=== PATIENT | female | born 1985 | race Caucasian/White ===

== ENCOUNTER 2020-04-22 08:39 | Inpatient (IN) ==
[2020-04-22] MEDS ORDERED: BUTORPHANOL TARTRATE 2 MG/ML VIAL IV PRN ×2 (12:39)
[2020-04-22] MEDS ORDERED: RINGER'S SOLUTION,LACTATED 1,000 ML IV ONE (12:39)
[2020-04-22] MEDS ORDERED: ONDANSETRON 4 MG TAB.RAPDIS PO PRN (12:39)
[2020-04-22] MEDS ORDERED: OXYTOCIN/0.9 % SODIUM CHLORIDE 30 UNITS/500 ML BAG IV ONE ×2 (12:39→12:55)
[2020-04-22] MEDS ORDERED: LIDOCAINE HCL 50 ML VIAL PERI PRN (12:39)
[2020-04-22] MEDS ORDERED: RINGER'S SOLUTION,LACTATED 1,000 ML IV PRN (12:39)
[2020-04-22] MEDS ORDERED: SENNOSIDES 8.6 MG TABLET PO PRN (12:55)
[2020-04-22] MEDS ORDERED: HYDROCORTISONE 30 APPL TUBE TP PRN (12:55)
[2020-04-22] MEDS ORDERED: BISACODYL 10 MG SUPP.RECT RC PRN (12:55)
[2020-04-22] MEDS ORDERED: BENZOCAINE/MENTHOL 81 SPRAY CAN TP PRN (12:55)
[2020-04-22] MEDS ORDERED: HYDROcodone/ACETAMINOPHEN 1 EACH TABLET PO PRN ×2 (12:55)
[2020-04-22] MEDS ORDERED: diphenhydrAMINE HCL 25 MG CAPSULE PO PRN (12:55)
[2020-04-22] MEDS ORDERED: GLYCERIN/WITCH HAZEL LEAF 40 APPL BOX TP PRN (12:55)
[2020-04-22] MEDS: MISOPROSTOL 100 MCG TABLET VG PRN ×2 (13:20→23:46)
--- NOTE | 2020-04-22 17:10 | HP ---
Chief Complaint - Chief Complaint Date of Service: 04/22/20 Time of Service: 17:05 Chief Complaint: Induction of labor History of Present Illness: 35 year old at 37w 4d who presented to labor and delivery for a medical IOL due to superimposed pre-eclampsia. She denies ctx, vb or lof. Fetus is active. Medical History (Last Reviewed 04/22/20 @ 17:06 by Shahnaz Shah MD) Chronic hypertension (Acute) Onset Date: Unknown Baseline UP:CR 211 mg BP mild range today On baby ASA until delivery Growth US normal today. Repeat growth US at 38 weeks NST reactive JENNY normal Delivery at 39 weeks High-risk supervision (Acute) Rh(D) positive (Acute) Onset Date: Unknown AMA (advanced maternal age) primigravida 35+ (Acute) [id number] normal Delivery around 39 weeks Anxiety Onset Date: Unknown Hypokalemia Onset Date: 04/03/20 Pilonidal cyst Onset Date: Unknown Surgical History: Surgical History (Last Reviewed 04/22/20 @ 17:06 by Shahnaz Shah MD) History of wisdom tooth extraction Onset Date: Unknown Family History: Family History (Last Reviewed 04/22/20 @ 17:06 by Shahnaz Shah MD) Father Diabetes type II Anxiety Melanoma Hypertension Brain tumor Mother Anxiety Hypertension Grandmother Cancer, Onset Age: 80 breast Social History: (Last Reviewed 04/22/20 @ 17:06 by Shahnaz Sahh MD) Social History: Marital status: household members: spouse current occupational status: employed current occupation: office assistant receptionist Highest level of school completed/degree received: Bachelor's degree Service: No Tobacco: Smoking Status: Former smoker Alcohol: alcohol intake: former details: none since +UPT Substance Use: substance use type: does not use Dietary Habits: caffeine: No Review Of Systems (GEN) - Review of Systems Generalized/Overall Review: Present: No Symptoms Reported Misc: All systems neg except as marked Allergies/Adverse Reactions: Allergies Allergy/AdvReac Type Severity Reaction Status Date / Time No Known Allergies Allergy Verified 04/21/20 15:03 Home Medications: HOME MEDICATIONS fluoxetine 40 mg capsule 80 mg PO DAILY cap 10/05/19 [Last Taken Unknown] fluvoxamine 100 mg tablet 300 mg PO DAILY tab 10/05/19 [Last Taken Unknown] aspirin 81 mg tablet,delayed release 81 mg PO DAILY 10/29/20 [Last Taken Unknown] breast pump See Rx Instructions .MEDSUPPLY #1 ea 04/03/20 [Last Taken Unknown] ferrous sulfate 325 mg (65 mg iron) tablet 325 mg PO DAILY 04/07/20 [Last Taken Unknown] Magnesium Oxide [Magnesium] 500 mg PO DAILY 04/22/20 [Last Taken Unknown] Vits96/Iron Fum/Folic [ S] 1 tab PO DAILY 04/22/20 [Last Taken Unknown] Exam - Exam Vital Signs: Vital Signs - Last Taken Temp 36.7 C 04/22/20 13:05 Pulse 76 04/22/20 13:05 Resp 18 04/22/20 13:05 BP 148/84 H 04/22/20 13:05 Pulse Ox 97 04/22/20 13:05 Constitutional: Present: Alert, Oriented x3, Cooperative, No distress ENT Exam: Present: hearing grossly normal Eye Exam: bilateral eye: normal inspection Neck: Present: normal inspection Back Exam: Present: normal inspection Breasts: Present: Exam deferred Respiratory: Present: lungs clear, normal breath sounds, no respiratory distress Cardiovascular/Chest: Present: regular rate, rhythm Abdomen: Present: soft, nontender, nondistended /Rectal: Present: Exam deferred Extremity: Present: non-tender, no calf tenderness Skin Exam: Present: normal color, warm/dry, no cyanosis Neurologic: Present: alert, normal mood/affect, oriented x 3 Appearance: Present: appropriate appearance, appropriate insight, neat, no memory impairment Eye contact: Present: cooperative, good eye contact, normal speech Thoughts: Present: normal thought pattern Diagnostic Studies: Laboratory Results Blood Type A Positive 04/22/20 12:50 Antibody Screen Negative 04/22/20 12:50 Assessment/Plan - Narrative Narrative: 35 year old at 37w 4d 1. Medical IOL due to SIP: the patient has received one dose of misoprostol 2. GBS negative: prophylaxis not indicated - Assessment/Plan (1) Pre-eclampsia superimposed on chronic hypertension Problem: Acute (2) 37 weeks gestation of Problem: Acute (3) Normal Pap smear Problem: Acute (4) Rh(D) positive Problem: Acute (5) AMA (advanced maternal age) primigravida 35+ Problem: Acute Qualifiers: Trimester: third trimester Qualified Code(s): O09.513 - Supervision of everardo keane primigravida, third trimester (6) Anxiety Problem: Acute
[2020-04-23] MEDS: DOCUSATE SODIUM 100 MG CAPSULE PO SCH ×2 (04:01→12:03)
[2020-04-23] MEDS: MISOPROSTOL 100 MCG TABLET VG PRN (04:36)
[2020-04-23] MEDS ORDERED: DINOPROSTONE 10 MG SUPP.VAG VG ONE ×2 (07:03→09:30)
--- NOTE | 2020-04-23 07:58 | PN ---
Progess Note - Interim Date: 04/23/20 Time: 07:56 Narrative: 04/23/20 07:56 The patient has not had any cervical change after 4 doses of cytotec. Allow for a regular diet. Cervidil ordered
[2020-04-23] MEDS ORDERED: FLUoxetine HCL 20 MG CAPSULE PO SCH (13:15)
[2020-04-23] MEDS ORDERED: FLUVOXAMINE MALEATE 25 MG TABLET PO SCH (15:00)
[2020-04-23] MEDS ORDERED: LIDOCAINE HCL 100 APPL SOLUTION MM PRN (21:59)
[2020-04-23] MEDS ORDERED: MISOPROSTOL 100 MCG TABLET VG PRN (22:01)
[2020-04-23] MEDS ORDERED: LIDOCAINE HCL 15 ML UDC ONE (22:15)
[2020-04-23] MEDS ORDERED: LIDOCAINE HCL 10 APPL CARTRIDGE ONE (22:23)
[2020-04-23] MEDS ORDERED: LIDOCAINE HCL 10 APPL CARTRIDGE MM PRN (22:24)
[2020-04-24] MEDS ORDERED: ONDANSETRON HCL/PF 2 MG/ML VIAL IV PRN (07:34)
[2020-04-24] MEDS ORDERED: BUPIVACAINE HCL/0.9 % NACL/PF 250 ML EP PRN (07:34)
[2020-04-24] MEDS ORDERED: NALOXONE HCL 1 MG/1 ML SYRG IV PRN (07:34)
[2020-04-24] MEDS ORDERED: fentaNYL CITRATE/PF 50 MCG/ML AMPUL IT SCH (07:45)
--- NOTE | 2020-04-24 07:57 | ANES ---
Anesthesia Pre Procedure Eval Vitals/Labs: Last Vital Signs Temp 36.7 C 04/22/20 13:05 Pulse 76 04/22/20 13:05 Resp 18 04/22/20 13:05 BP 148/84 H 04/22/20 13:05 Pulse Ox 97 04/22/20 13:05 HOME MEDICATIONS fluoxetine 40 mg capsule 80 mg PO DAILY cap 10/05/19 [Last Taken Unknown] fluvoxamine 100 mg tablet 300 mg PO DAILY tab 10/05/19 [Last Taken Unknown] aspirin 81 mg tablet,delayed release 81 mg PO DAILY 12/20/19 [Last Taken Unknown] breast pump See Rx Instructions .MEDSUPPLY #1 ea 04/03/20 [Last Taken Unknown] ferrous sulfate 325 mg (65 mg iron) tablet 325 mg PO DAILY 04/07/20 [Last Taken Unknown] Magnesium Oxide [Magnesium] 500 mg PO DAILY 04/22/20 [Last Taken Unknown] Vits96/Iron Fum/Folic [ S] 1 tab PO DAILY 04/22/20 [Last Taken Unknown] Allergies/Adverse Reactions: Allergies Allergy/AdvReac Type Severity Reaction Status Date / Time No Known Allergies Allergy Verified 04/21/20 15:03 - Planned Procedure Planned Procedure: INDUCTION OF LABOR Medication List Reviewed:: Yes Allergies Verified: Yes Medical History (Last Reviewed 04/24/20 @ 07:56 by Joshua Back CRNA) Chronic hypertension (Acute) Onset Date: Unknown Baseline UP:CR 211 mg BP mild range today On baby ASA until delivery Growth US normal today. Repeat growth US at 38 weeks NST reactive JENNY normal Delivery at 39 weeks High-risk supervision (Acute) Rh(D) positive (Acute) Onset Date: Unknown AMA (advanced maternal age) primigravida 35+ (Acute) [id number] normal Delivery around 39 weeks Anxiety Onset Date: Unknown Hypokalemia Onset Date: 04/03/20 Pilonidal cyst Onset Date: Unknown Surgical History (Last Reviewed 04/24/20 @ 07:56 by Joshua Back CRNA) History of wisdom tooth extraction Onset Date: Unknown Family History (Last Reviewed 04/24/20 @ 07:56 by Joshua Back CRNA) Father Diabetes type II Anxiety Melanoma Hypertension Brain tumor Mother Anxiety Hypertension Grandmother Cancer, Onset Age: 80 breast - Family Anesthesia History Family History:: no untoward family reactions to anesthesia, no familial bleeding tendencies, no family history of clotting disorders, no family history of premature - Airway/Neck/Teeth Within Normal Limits:: Yes Teeth Condition: intact Neck Exam: full range of motion Mallampatti Score: 2 Thyromental (T-M) distance: > 6 cm Mandibulo Hyoid distance: > 3 cm - Respiratory Respiratory Physical: lungs clear Smoking Status: Never smoker Sleep Apnea currently treated: No Sleep Apnea by current assessment: No - Cardiovascular Cardiac History: hypertension Tolerate Activity: Fair Heart Sounds: S1 & S2, Regular - Gastrointestinal NPO since: 2399 - Anesthesia Assessment and Plan ASA Class: PS, II, E Anesthesia Type Plan: Epidural - CSE for labor analgesia
--- NOTE | 2020-04-24 08:19 | ANES ---
Anesthesia Procedure Note Procedure Note: ANESTHESIA PROCEDURE NOTE Date of Procedure: 3: 21 Time of procedure: 7:55 AM. Performed by: NOE Wei CRNA, MSN Turbine Room Attendant: Flory Gillette RN. Preprocedure diagnosis: Active labor, labor pain. Post procedure diagnosis: Same. Procedure:Epidural for labor analgesia L3-4. Indications: Labor pain. Findings: See below. Details of the procedure: The patient was placed on the side of the bed in sitting positionand prepped with DuraPrep then draped in a sterile fashion. Lidocaine 1% was infiltrated to the skin and subcutaneous tissues at the level of the L3-4 interspace. An 18-gauge Touhy needle was used to approach the epidural space with loss of resistance technique. Once loss of resistance was achieved a 27-gauge spinal needle was passed through the epidural needle and CSF was contacted. After CSF returned, 20 mcg of fentanyl was injected in the spinal needle was removed the epidural catheter was then threaded approximately 4 cm in the epidural needle was removed. The catheter was taped in place and after careful aspiration 3 mL of 1.5% lidocaine with 1-200,000 epinephrine was injected without change in maternal heart rate or sensorium. . EBL: Minimal. Fluids: N/A. Specimen: N/A. Post procedure condition: The patient tolerated the procedure well with good relief. No complications were noted. Thank you for this consultation. Joshua Back CRNA, ARNP, MSN
--- NOTE | 2020-04-24 08:20 | ANES ---
Post Anesthesia Discharge - Transfer of Care Transfer of Care handoff given to nurse: Yes - Discharge from PACU Discharge from PACU when meets criteria: Yes - Comfortable post CSE
--- NOTE | 2020-04-24 08:25 | ANES ---
Post Anesthesia Assessment - Vital Signs Vitals: Last Vital Signs Temp 36.7 C 04/22/20 13:05 Pulse 76 04/22/20 13:05 Resp 18 04/22/20 13:05 BP 148/84 H 04/22/20 13:05 Pulse Ox 97 04/22/20 13:05 Airway Patency: Normal - Mental Status Level Of Consciousness: Awake, Alert, Appropriate - Pain Level Pain Score: 0 - N/V Assessment Nausea/Vomiting Presence: None Dehydration:: No
--- NOTE | 2020-04-24 11:07 | PN ---
Progess Note - Interim Date: 04/24/20 Time: 08:30 Narrative: 04/24/20 11:05 Late entry Called to bedside due to bradycardia to the 60s post-epidural placement. The patient received ephedrine and heart tones had recovered when I arrived at the bedside cvx 4-5/50/-2 SROM overnight. No fluid noted during my examinations IUPC/FSE placed FHT cat 1 Titrate pitocin up according to contractions
[2020-04-24] MEDS: DOCUSATE SODIUM 100 MG CAPSULE PO SCH (13:35)
[2020-04-24 13:49] LABS: Hematocrit 39.2 % (37.0-47.0); Hemoglobin 12.1 gm/dL (12.5-16.0); Mean Cell Volume 89.3 fl (78-100); Mean Corpuscular Hemoglobin 27.6 pg (27-31); Mean Corpuscular Hgb Conc 30.9 g/dl (32-36); Mean Platelet Volume 11.9 fl (8-12.5); Neutrophil # 8.4 K/mm3 (1.3-6.0); Neutrophil % 78.4 % (42-75.0); Platelet Count 208 K/mm3 (150-450); Red Blood Count 4.39 M/mm3 (4.2-5.4); Red Cell Distribution Width 16.1 % (11.5-14.0); White Blood Count 10.7 K/mm3 (4.0-10.5)
[2020-04-24 13:57] LABS: Albumin * 2.1 gm/dl (3.4-5.0); Anion Gap 13.9 mmol/L (6.8-13.8); BUN/Creatinine Ratio 7.1 (9.0-21.6); Bilirubin, Total 0.3 mg/dL (0.0-1.1); Ca. Corrected For Albumin 9.6 mg/dL (8.4-10.2); Calcium * 8.4 mg/dL (7.9-10.9); Potassium 3.9 mmol/L (3.4-4.6); Total Protein 5.6 gm/dL (6.2-8.2)
[2020-04-24] MEDS ORDERED: CALCIUM GLUCONATE 4.65 MEQ/10 ML VIAL IV PRN (14:07)
[2020-04-24] MEDS ORDERED: MAGNESIUM SULFATE IN WATER 50 ML IV ONE (14:07)
[2020-04-24] MEDS ORDERED: MAGNESIUM SULFATE IN WATER 1,000 ML IV SCH (14:15)
[2020-04-24] MEDS ORDERED: DEXTROSE 5%-LACTATED RINGERS 1,000 ML IV PRN (17:31)
[2020-04-24] MEDS ORDERED: FLUOXETINE 40 MG PO SCH (21:00)
--- NOTE | 2020-04-24 21:52 | OR ---
Operative Report - Dictated Report Narrative: Date of delivery: 04/24/2020 Time of delivery: 2129 Gender: male weight: 2954 grams APGARS: 7/8 Procedure: Description of the procedure: The patient is a 35 year old who underwent a medical IOL due to SIP. She delivered a viable male in LAUREN presentation. A double loose nuchal cord was reduced after delivery of the 's head. The shoulders delivered without any difficulty followed by the rest of the infant. Cord clamping was delayed for 60 seconds due to vigorous . The cord was clamped and cut. Cord blood was collected. The placenta delivered by expression, intact, and without difficulty. A first degree vaginal laceration did not require repair. EBL: 100 mL Complications: none Specimens: cord blood, placenta History for MU Definition: * The number of deliveries resulting in a live the patient experienced prior to current hospitalization * The previous delivery of live twins or any live multiple gestation is considered one live event. *If primagravida or nulliparous is documented select zero for the number of previous live births. Live Events: 0
[2020-04-25] MEDS: IBUPROFEN 800 MG TABLET PO PRN ×2 (00:10→08:13)
[2020-04-25] MEDS: DOCUSATE SODIUM 100 MG CAPSULE PO SCH ×2 (00:50→08:13)
[2020-04-25 07:00] VITALS: BP 139/79
--- NOTE | 2020-04-25 07:22 | PN ---
Subjective - Date and Time Seen Date: 04/25/20 Time: 07:19 Subjective Narrative: Patient without complaints Objective Objective Narrative: See vital signs - Review of Systems Generalized/Overall Review: Reports: No Symptoms Reported Misc: All systems neg except as marked - Vitals Vitals: Last Vital Signs Temp 36.3 C 04/25/20 06:15 Pulse 68 04/25/20 06:15 Resp 20 04/25/20 06:15 BP 139/79 04/25/20 06:15 Pulse Ox 99 04/25/20 06:15 - Abnormal Lab Findings Abnormal Lab Findings: Abnormal Lab Results 04/24/20 04/24/20 Range/Units 13:36 13:36 WBC 10.7 H D (4.0-10.5) K/mm3 Hgb 12.1 L (12.5-16.0) gm/dL MCHC 30.9 L (32-36) g/dl RDW 16.1 H (11.5-14.0) % Immature Gran # (Auto) 0.04 H (0.000-0.0310) K/mm3 Neutrophils % 78.4 H (42-75.0) % Lymphocytes % 13.1 L (20-51) % Neutrophils # 8.4 H (1.3-6.0) K/mm3 Lymphocytes # 1.39 L (1.5-3.5) k/mm3 Carbon Dioxide 23.0 L (24-32.6) mmol/L Anion Gap 13.9 H (6.8-13.8) mmol/L BUN/Creatinine Ratio 7.1 L (9.0-21.6) Random Glucose 126 H D (70-110) mg/dL ALT 16 L (19-67) U/L Total Protein 5.6 L (6.2-8.2) gm/dL Albumin 2.1 L (3.4-5.0) gm/dl - Exam Constitutional: Present: Alert, Oriented x3, Cooperative, No distress Abdomen: Present: soft, nontender, nondistended - fundus is firm Extremity: Present: non-tender, no calf tenderness Skin Exam: Present: normal color, warm/dry, no cyanosis Neurologic: Present: alert, normal mood/affect, oriented x 3 Appearance: Present: appropriate appearance, appropriate insight, neat, no memory impairment Eye contact: Present: cooperative, good eye contact, normal speech Thoughts: Present: normal thought pattern Cauti Physician Documentation - Urinary Catheter Management Urethral (Vinson) Urethral Indwelling: No Date of Insertion: 04/24/20 Time of Insertion: 08:50 Date of Removal: 04/24/20 Time of Removal: 20:52 Assessment/Plan Plan Narrative: PPD 1 Doing well Discharge today since baby transferred to [facility] - Problems/Diagnosis (1) Pre-eclampsia superimposed on chronic hypertension Problem: Acute (2) 37 weeks gestation of Problem: Acute (3) Normal Pap smear Problem: Acute (4) Rh(D) positive Problem: Acute (5) AMA (advanced maternal age) primigravida 35+ Problem: Acute Qualifiers: Trimester: third trimester Qualified Code(s): O09.513 - Supervision of elderly primigravida, third trimester (6) Anxiety Problem: Acute
--- NOTE | 2020-04-25 07:29 | DS ---
OB Discharge Summary (1) Pre-eclampsia superimposed on chronic hypertension Status: Acute (2) 37 weeks gestation of Status: Acute (3) Normal Pap smear Status: Acute (4) Rh(D) positive Status: Acute (5) AMA (advanced maternal age) primigravida 35+ Status: Acute Qualifiers: Trimester: third trimester Qualified Code(s): O09.513 - Supervision of elderly primigravida, third trimester (6) Anxiety Status: Acute Delivery Date: 04/24/20 Delivery Time: 21:30 :: 1 Para:: 1 Gestational weeks:: 37 Gestational days:: 6 Intrapartum Procedures: Spontaneous Vaginal Delivery, Anesthesia - Epidural Procedures: None /OP Complications: Preeclampsia/GHTN Discharge Diagnosis: Term -Delivered, Preeclampsia mild/severe - Discharge Information Date of Discharge: 04/25/20 Hospital Course: The patient presented for a medical IOL due to SIP. She delivered without complications. course uncomplicated. Discharge Location: Home Disposition: Home self-care Referrals: Gayla Us, PAC [Primary Care Provider] - Activity on Discharge:: Activity as tolerated, Pelvic Rest Discharge Diet: General/regular food Additional Patient Instructions (free text): Roxanna to follow up with Dr. Shah on Continue to take vitamins one daily. Take frequent rest periods. Pump every 2-3 hours. Report to your doctor any TOLBERT, visual disturbances, dizziness, epigastric pain, increase in swelling. Thank you for choosing the [facility] for your special event, congratulations on the new addition to your family. If you have any questions, concerns please call the [facility] [phone], [facility] [phone] or [facility] [phone]. Complete Home Medications List: Complete Home Medication List: fluoxetine 40 mg capsule 80 mg PO DAILY cap 10/05/19 fluvoxamine 100 mg tablet 300 mg PO DAILY tab 10/05/19 Vits96/Iron Fum/Folic [ S] 1 tab PO DAILY 04/22/20 - Plan Discharge to:: Home Comment:: Routine Discharge Instructions Follow up in office in:: Other - 4 weeks - Information Weight (Grams): 2,954 Infant Sex: Male Score 1 min: 7 Score 5 min: 8 Infant Complications: Decreased Variability Other Complications: Respiratory distress in . Transferred to [facility]
[2020-04-25] MEDS ORDERED: FLUOXETINE 40 MG PO SCH (09:00)
[2020-04-25] MEDS ORDERED: FLUVOXAMINE 100 MG PO SCH (09:00)
== END 2020-04-25 09:30 | disposition home or self-care (01) | DRG 807 ==
LOC: OB 12:29
PROVIDERS: ADMIT Obstetrics & Gynecology; ATTEND Obstetrics & Gynecology